=== PATIENT | female | born 1980 | race Two or more races ===

== ENCOUNTER 2016-11-21 10:15 | Inpatient (IN) | payer MEDICAID, OTHER ==
[2016-11-21 11:15] LABS: Hematocrit 43 % (35-47); Hemoglobin 13.7 g/dl (12.0-16.0); Mean Corpuscular HGB Conc 32 g/dl (31-36); Mean Corpuscular Hemoglobin 26 pg (27-31); Mean Corpuscular Volume 80 fL (80-97); Mean Platelet Volume 9 um3 (7.4-10.4); Red Blood Count 5.35 10^6/ul (4.0-5.4); Red Cell Distribution Width 14 % (10.5-15); White Blood Count 11.2 10^3/ul (3.5-10.8)
[2016-11-21 11:31] LABS: ALT 21 U/L (7-52); AST 14 U/L (13-39); Albumin 4.2 g/dL (3.2-5.2); Alkaline Phosphatase 61 U/L (34-104); Anion Gap 11 mmol/L (2-11); BUN/Creatinine Ratio 14.3 (8-20); Blood Urea Nitrogen 9 mg/dL (6-24); CO2 Carbon Dioxide 19 mmol/L (22-32); Calcium 9.6 mg/dL (8.6-10.3); Chloride 106 mmol/L (101-111); EGFR African American 136.7 (>60); EGFR Non-African American 106.3 (>60); Globulin 3.3 g/dL (2-4); Glucose 114 mg/dL (70-100); Potassium 3.3 mmol/L (3.5-5.0); Sodium 136 mmol/L (133-145); Total Protein 7.5 g/dL (6.4-8.9)
[2016-11-21] MEDS ORDERED: Potassium Chlor TAB* 20 MEQ TAB.ER PO ONE (11:47)
[2016-11-21 11:48] LABS: Acetaminophen < 15 mcg/mL; Alcohol < 10 mg/dL (<10); Salicylate < 2.50 mg/dL (<30)
[2016-11-21 11:52] LABS: Benzodiazepine Urine Screen None Detected (None Detect)
[2016-11-21 11:53] LABS: Urine Bacteria Absent (Absent); Urine Bilirubin Negative (Negative); Urine Glucose Negative (Negative); Urine Nitrite Negative (Negative)
[2016-11-21 12:01] LABS: TSH (Thyroid Stimulating Horm) 1.26 mcIU/mL (0.34-5.60)
[2016-11-21] MEDS ORDERED: Haloperidol INJ IV/IM* 5 MG/ML AMP IM ONE (13:17)
[2016-11-21] MEDS ORDERED: diPHENhydraMINE IV* 50 MG/ML 1 ml VIAL (BENADRYL) IM ONE ×2 (13:17→13:27)
[2016-11-21] MEDS ORDERED: LORazepam INJ* 2 MG/ML 1 ML VIAL IM ONE (13:17)
[2016-11-21] MEDS ORDERED: Nicotine Inhaler* 10 MG AMP INH ONE (13:37)
[2016-11-21] MEDS ORDERED: Al Hydrox/Mg Hydrox/Simet LIQ* 30 ML UDC PO PRN (15:38)
[2016-11-21] MEDS ORDERED: Acetaminophen TAB* 325 MG PO PRN (15:38)
[2016-11-21] MEDS ORDERED: LORazepam TAB(*) 1 MG PO PRN (15:39)
--- NOTE | 2016-11-21 15:49 | ED ---
Feng Cabrera Benjamin, scribed for Phoenix Rios MD on 11/21/16 at 1135 . Psychiatric Complaint - HPI Summary HPI Summary: 36yo female states that her bipolar is acting up for 3 days. Pt reports having manic syndrome, where pt cannot calm down or stay quiet. Pt says she has been talking herself. Pt is not hearing voices, and denies SI or HI. Pt has been having trouble sleeping lately. Pt takes haldol for her symptoms. Hx of insomnia and bipolar dz. Smoker, but denies street drug use. - History Of Current Complaint Chief Complaint: [facility]entalHealth Time Seen by Provider: 11/21/16 10:25 Hx Obtained From: Patient Hx Last Menstrual Period: last month Onset/Duration: Sudden Onset, Lasting Days - 3 days, Still Present Timing: Constant Severity Initially: Moderate Severity Currently: Moderate Character: Manic Aggravating Factor(s): Nothing Alleviating Factor(s): Nothing Associated Signs And Symptoms: Positive: Sleep Disturbance - insomnia - Allergies/Home Medications Allergies/Adverse Reactions: Allergies Allergy/AdvReac Type Severity Reaction Status Date / Time No Known Drug Allergy Allergy Unknown Verified 11/21/16 10:18 Reaction Details Home Medications: Home Medications Benztropine TAB* [Cogentin TAB*] 1 mg PO DAILY 11/21/16 [History Confirmed 11/21] Haloperidol TAB* [Haldol TAB*] 2 mg PO BID 11/21/16 [History Confirmed 11/21/16] Sertraline* [Zoloft*] 50 mg PO DAILY 11/21/16 [History Confirmed 11/21/16] PMH/Surg Hx/FS Hx/Imm Hx Endocrine/Hematology History: Denies: Hx Diabetes, Hx Thyroid Disease Cardiovascular History: Denies: Hx Hypertension Respiratory History: Denies: Hx Asthma, Hx Chronic Obstructive Pulmonary Disease (COPD) GI History: Denies: Hx Ulcer Psychiatric History: Reports: Hx Anxiety, Hx Inpatient Treatment - Prior to delivery pt was on BSU @ [facility] [place], Hx Bipolar Disorder, Other Psychiatric Issues/ Disorders - psychosis Denies: Hx Eating Disorder, Hx of Violent Episodes Against Others Infectious Disease History: No Infectious Disease History: Denies: Hx Hepatitis, Hx Human Immunodeficiency Virus (HIV), History Other Infectious Disease, Traveled Outside the [place] in Last 30 Days - Family History Known Family History: Negative: Cardiac Disease, Hypertension - Social History Occupation: Unemployed Lives: With Family Alcohol Use: None Substance Use Type: Reports: None Smoking Status (MU): Never Smoked Tobacco Type: Cigarettes Amount Used/How Often: 1/2 ppd Length of Time of Smoking/Using Tobacco: 20 years Have You Smoked in the Last Year: Yes Review of Systems Constitutional: Negative Eyes: Negative ENT: Negative Cardiovascular: Negative Respiratory: Negative Gastrointestinal: Negative Genitourinary: Negative Musculoskeletal: Negative Skin: Negative Neurological: Negative Positive: Other - manic, insomnia. All Other Systems Reviewed And Are Negative: Yes Physical Exam Triage Information Reviewed: Yes Vital Signs On Initial Exam: Initial Vitals Temp Pulse Resp BP Pulse Ox 98.4 F 99 16 144/89 98 11/21/16 10:18 11/21/16 10:18 11/21/16 10:18 11/21/16 10:18 11/21/16 10:18 Appearance: Positive: Well-Appearing - she seems a little anxious and manic in disposition Skin: Positive: Warm, Skin Color Reflects Adequate Perfusion Head/Face: Positive: Normal Head/Face Inspection Eyes: Positive: Normal, EOMI ENT: Positive: Pharynx normal, TMs normal Neck: Positive: Supple, Nontender Respiratory/Lung Sounds: Positive: Clear to Auscultation, Breath Sounds Present Cardiovascular: Positive: Normal, RRR. Negative: Murmur Abdomen Description: Positive: Nontender Musculoskeletal: Positive: Strength/ROM Intact Neurological: Positive: Normal, Sensory/Motor Intact, Alert, Oriented to Person Place, Time, CN Intact II-III, Normal Gait, Speech Normal - but pressured Psychiatric: Positive: Anxious, Other - she paces in the room, and speach is a little pressured, answers question quickly like she can't wait to respond fast enough. AVPU Assessment: Alert - [place] Coma Scale Coma Scale Total: 13 Diagnostics - Vital Signs Vital Signs Temp Pulse Resp BP Pulse Ox 11/21/16 11:06 98.4 F 99 16 144/89 98 11/21/16 10:18 98.4 F 99 16 144/89 98 - Laboratory Lab Results: Lab Results 11/21/16 11/21/16 Range/Units 11:06 11:06 WBC 11.2 H (3.5-10.8) 10^3/ul RBC 5.35 (4.0-5.4) 10^6/ul Hgb 13.7 (12.0-16.0) g/dl Hct 43 (35-47) % MCV 80 (80-97) fL MCH 26 L (27-31) pg MCHC 32 (31-36) g/dl RDW 14 (10.5-15) % Plt Count 224 (150-450) 10^3/ul MPV 9 (7.4-10.4) um3 Neut % (Auto) 79.8 (38-83) % Lymph % (Auto) 15.3 L (25-47) % [place] % (Auto) 3.5 (1-9) % Eos % (Auto) 0.4 (0-6) % Baso % (Auto) 1.0 (0-2) % Absolute Neuts (auto) 8.9 H (1.5-7.7) 10^3/ul Absolute Lymphs (auto) 1.7 (1.0-4.8) 10^3/ul Absolute Monos (auto) 0.4 (0-0.8) 10^3/ul Absolute Eos (auto) 0 (0-0.6) 10^3/ul Absolute Basos (auto) 0.1 (0-0.2) 10^3/ul Absolute Nucleated RBC 0 10^3/ul Nucleated RBC % 0 Sodium 136 (133-145) mmol/L Potassium 3.3 L (3.5-5.0) mmol/L Chloride 106 (101-111) mmol/L Carbon Dioxide 19 L (22-32) mmol/L Anion Gap 11 (2-11) mmol/L BUN 9 (6-24) mg/dL Creatinine 0.63 (0.51-0.95) mg/dL Est GFR ( Amer) 136.7 (>60) Est GFR (Non-Af Amer) 106.3 (>60) BUN/Creatinine Ratio 14.3 (8-20) Glucose 114 H (70-100) mg/dL Calcium 9.6 (8.6-10.3) mg/dL Total Bilirubin 0.30 (0.2-1.0) mg/dL AST 14 (13-39) U/L ALT 21 (7-52) U/L Alkaline Phosphatase 61 (34-104) U/L Total Protein 7.5 (6.4-8.9) g/dL Albumin 4.2 (3.2-5.2) g/dL Globulin 3.3 (2-4) g/dL Albumin/Globulin Ratio 1.3 (1-3) TSH Pending Salicylates Pending Acetaminophen Pending Serum Alcohol Pending Result Diagrams: 11/21/16 11:06 11/21/16 11:06 Lab Statement: Any lab studies that have been ordered have been reviewed, and results considered in the medical decision making process. Course/Dx - Course Course Of Treatment: 36 yr old with pressured speach and anxious, and asking for admission to mental health. Awaiting mental health eval. Pt is medically cleared for mental health eval. at 12:50. - Differential Dx/Clinical Impression Provider Diagnosis: Manic behavior Discharge - Discharge Plan Condition: Good Disposition: PSYCHIATRIC FACILITY-[facility] [place] The documentation as recorded by the Feng schreiber Benjamin accurately reflects the service I personally performed and the decisions made by , Phoenix Rios MD.
[2016-11-21] MEDS: Haloperidol TAB* 2 MG PO SCH (22:18)
[2016-11-22] MEDS: Haloperidol TAB* 2 MG PO SCH (07:41)
[2016-11-22] MEDS: Benztropine TAB* 1 MG PO SCH (07:41)
[2016-11-22] MEDS: Mouth Piece, Nicotine* 1 EACH CARTRIDGE INH PRN ×2 (07:42→15:39)
[2016-11-22] MEDS ORDERED: Sertraline* 50 MG TAB PO SCH (09:00)
--- NOTE | 2016-11-22 12:38 | HP ---
H&P (Free Text) History and Physical: HPI: ---- Patient is a 36yo female with PPHx significant for Bipolar 1 d/o who self presents [place] [facility] reporting worsening insomnia, agitation, and "lymphocyting" over the last 3 days. Patient reports she made that word up, but to her lymphocyting is an episodic inability to sit still, she has to walk around, she has to hold her legs to keep them from bouncing. Patient gives this provider verbal permission to call parents. Collateral information gained from mother#[phone]. Mom reports patient has been more irritable and angry. Patient has been demanding toward family and is verbally aggressive when someone upsets her. Mom reports patient has not slept well for a week. She also reports patient's "nerves" have been bad and she cant stop pacing. On interview, patient is activated in manner, rapid in speech but incorruptible , reports increased anxiety and insomnia. Patient displays moderate psychomotor activation. Patient is linear in TP and appropriate in TC. She reports no use of alchol or illicit substances since being with her 3yo son. She reports being a [facility] patient. She also is an [facility] patient and a patient of [facility]. Patient reports she is compliant with current psychotropic med regimen. Patient denies hx of physical, emotional, or sexual abuse in her life. Patient denies hx of suicide attempt and denies hx of SIB. Patient denies symptoms of psychosis nor were any elicited on interview. Patient denies SI/HI and AH/VH. Past Psych Hx: Inpt - Patient reports >6 inpatient psychiatric hospitalizations Outpt - [facility], Dr. Yang, last seen 2 weeks ago Dx - Bipolar d/o Psychotropic med hx - Haldol, Cogentin, Zoloft Suicide attempt Hx / SIB Hx: Patient denies hx of suicide attempt and denies hx of SIB. Trauma Hx: Patient denies hx of physical, emotional, or sexual abuse in her life. Substance Hx: Patient denies hx of abuse of alcohol. Patient reports no use of cannabis in 3 years, since being with her son. Patient denies hx of use of any other illicit substances. Medical Hx: None Allergies: --------- NKDA Family Hx: -Patient denies suicide hx on mom or dad's side of her family. -Patient denies RAN issues on mom or dad's side of her family. -Patient denies MH issues on mom or dad's side of her family. Social Hx: --------- -Born in [facility] [place], moved to [place], [place] at 2yo -Raised by mom and dad, close -1 of 2 remaining siblings, brother, close -HLOE: some college -Single, never -1 child, 3yo son -Lives with parents -Patient denies guns in the home -Patient denies stockpiles of old pills in the home Home Meds: Home Medications Medication Instructions Recorded Confirmed Type Benztropine TAB* [Cogentin TAB*] 1 mg PO DAILY 11/21/16 11/21/16 History Haloperidol TAB* [Haldol TAB*] 2 mg PO BID 11/21/16 11/21/16 History Sertraline* [Zoloft*] 50 mg PO DAILY 11/21/16 11/21/16 History VITALS: Vital Signs (72 hours) 11/21/16 11/21/16 11/21/16 10:18 11:06 13:29 Temperature 98.4 F 98.4 F Pulse Rate 99 99 Respiratory 16 16 16 Rate Blood Pressure 144/89 144/89 (mmHg) O2 Sat by Pulse 98 98 Oximetry 11/21/16 11/21/16 11/22/16 17:12 19:48 07:41 Temperature 97.7 F Pulse Rate 96 Respiratory 15 15 18 Rate Blood Pressure 111/73 (mmHg) O2 Sat by Pulse 100 Oximetry 11/22/16 11/22/16 11/22/16 07:43 09:41 11:49 Temperature 99.6 F Pulse Rate 88 Respiratory 16 20 16 Rate Blood Pressure 119/77 (mmHg) O2 Sat by Pulse 100 Oximetry LABS: ------- Laboratory Tests 0811/21/16 11/21/16 11:06 11:06 11:25 WBC 11.2 H RBC 5.35 Hgb 13.7 Hct 43 MCV 80 MCH 26 L MCHC 32 RDW 14 Plt Count 224 MPV 9 Neut % (Auto) 79.8 Lymph % (Auto) 15.3 L [place] % (Auto) 3.5 Eos % (Auto) 0.4 Baso % (Auto) 1.0 Absolute Neuts (auto) 8.9 H Absolute Lymphs (auto) 1.7 Absolute Monos (auto) 0.4 Absolute Eos (auto) 0 Absolute Basos (auto) 0.1 Absolute Nucleated RBC 0 Nucleated RBC % 0 Sodium 136 Potassium 3.3 L Chloride 106 Carbon Dioxide 19 L Anion Gap 11 BUN 9 Creatinine 0.63 Est GFR ( Amer) 136.7 Est GFR (Non-Af Amer) 106.3 BUN/Creatinine Ratio 14.3 Glucose 114 H Calcium 9.6 Total Bilirubin 0.30 AST 14 ALT 21 Alkaline Phosphatase 61 Total Protein 7.5 Albumin 4.2 Globulin 3.3 Albumin/Globulin Ratio 1.3 TSH 1.26 Urine Color Yellow Urine Appearance Clear Urine pH 5.0 Ur Specific [place] 1.020 Urine Protein Negative Urine Ketones 1+ H Urine Blood Negative Urine Nitrate Negative Urine Bilirubin Negative Urine Urobilinogen Negative Ur Leukocyte Esterase Trace H Urine WBC (Auto) 1+(6-10/hpf) H Urine RBC (Auto) Absent Ur Squamous Epith Cells Present H Urine Bacteria Absent Urine Glucose Negative Urine Ascorbic Acid * H Salicylates < 2.50 Urine Opiates Screen Acetaminophen < 15 Ur Barbiturates Screen Ur Phencyclidine Scrn Ur Amphetamines Screen U Benzodiazepines Scrn Urine Cocaine Screen U Cannabinoids Screen Serum Alcohol < 10 11/21/16 11:25 WBC RBC Hgb Hct MCV MCH MCHC RDW Plt Count MPV Neut % (Auto) Lymph % (Auto) [place] % (Auto) Eos % (Auto) Baso % (Auto) Absolute Neuts (auto) Absolute Lymphs (auto) Absolute Monos (auto) Absolute Eos (auto) Absolute Basos (auto) Absolute Nucleated RBC Nucleated RBC % Sodium Potassium Chloride Carbon Dioxide Anion Gap BUN Creatinine Est GFR ( Amer) Est GFR (Non-Af Amer) BUN/Creatinine Ratio Glucose Calcium Total Bilirubin AST ALT Alkaline Phosphatase Total Protein Albumin Globulin Albumin/Globulin Ratio TSH Urine Color Urine Appearance Urine pH Ur Specific [place] Urine Protein Urine Ketones Urine Blood Urine Nitrate Urine Bilirubin Urine Urobilinogen Ur Leukocyte Esterase Urine WBC (Auto) Urine RBC (Auto) Ur Squamous Epith Cells Urine Bacteria Urine Glucose Urine Ascorbic Acid Salicylates Urine Opiates Screen None detected Acetaminophen Ur Barbiturates Screen None detected Ur Phencyclidine Scrn None detected Ur Amphetamines Screen None detected U Benzodiazepines Scrn None detected Urine Cocaine Screen None detected U Cannabinoids Screen None detected Serum Alcohol PHYSICAL EXAM: Patient declines PE. Please see H&P documented in the [facility]: Psychiatric Complaint note dated 11/21/16. MSE: ----- Appearance - moderate build female, fair hygeine, in NAD Behavior - moderate PMA(+), cooperative Speech - RRR, prosody wnl Eye Contact - fair Mood - "anxious" Affect - anxious TP - linear TC - med modification to treat "lymphocyting"/"my nerves" Perception - no signs of psychosis noted or reported Orientation - A&Ox3 Cognition - intact Insight - fair Judgement - fair SI / HI - denies both since admission ASSESSMENT: 1. Bipolar 1 d/o, MRE manic w/o PFs 2. Akathisia aka "lymphocyting" PLAN: ------ 1. Continue admission to [facility] for safety and symptom mx. 2. Continue Cogentin 1mg po daily for EPS. 3. Patient gives informed consent to start Mirtazepine 15mg po qhs for Akathesia and Insomnia. 4. Will D/C Haldol as is likely cause of Akathesia 5. Patient gives informed consent to start [place] for mood stabilization. 6. Patient gives this provider verbal permission to call parents. Collateral information gained from mother#[phone]. 7. Continue compiling collateral information from [facility] providers. 8. Patient to participate in milieu activities and groups.
[2016-11-22 13:19] LABS: Cholesterol 171 mg/dL; HDL Cholesterol 43.4 mg/dL; LDL Cholesterol 104 mg/dL; Triglycerides 116 mg/dL
[2016-11-22] MEDS: Nicotine Inhaler* 10 MG AMP INH PRN (16:03)
[2016-11-22] MEDS: Mirtazapine TAB* 15 MG PO SCH (20:49)
[2016-11-22] MEDS: Lithium Carbonate TAB* 300 MG PO SCH (21:56)
[2016-11-23] MEDS: Lithium Carbonate TAB* 300 MG PO SCH ×2 (09:31→21:18)
[2016-11-23] MEDS: Benztropine TAB* 1 MG PO SCH (09:31)
[2016-11-23] MEDS: Mirtazapine TAB* 15 MG PO SCH (21:18)
[2016-11-24] MEDS: Benztropine TAB* 1 MG PO SCH (09:52)
[2016-11-24] MEDS: Lithium Carbonate TAB* 300 MG PO SCH ×2 (09:52→21:29)
--- NOTE | 2016-11-24 15:46 | PN ---
Subjective - Subjective Service Type: 11180 Hosp care 15 min low complexity Subjective: Says she is tired of "LYMPHOSTING". But thinks she has been doing better with less anxiety, less intrussive thoughts etc. Wants to go out for a walk. Objective - Appearance Appearance: Healthy Appearing Dysmorphic Features: No Hygiene: Normal Grooming: Well Kept - Behavior Psychomotor Activities: Normal Exhibits Abnormal Movement: No - Attitude and Relatedness Attitude and Relatedness: Guarded Eye Contact: Good - Speech Quality: Pressured Latencies: Short Quantity: Copious - Mood Patient's Decription of Mood: "Fine" - Affect Observed Affect: Expansive Affect Consistent with: Dysphoria - Thought Process Patient's Thought Process: Coherent, Circumstantial, Over Inclusive Thought Content: No Passive Wish, No Suicidal Planning, No Homicidal Ideation, No Paranoid Ideation - Sensorium Experiencing Hallucinations: No, Sensorium is Clear Type of Hallucinations: Visual: No, Auditory: No, Command: No - Level of Consciousness Level of Consciousness: Alert Orientation: Yes Intact, Yes Orientated to Time, Yes Orientated to Place, Yes Orientated to Person - Impulse Control Impulse Control: Tenuous - Insight and Judgement Insight and Judgement: Poor - Group Participation Particating in Group Activities: Yes - Medication Management Medication Management Adherence: Yes Assessment - Assessment Merits Inpatient Hospitalization: For Stabilization, For Discharge Planning Plan - Plan Treatment Plan: Name: BYRON CALVERT Birthdate: 1980 [id number] Continued Medication Management: Continue Outpt Medication Medications: Current Medications Acetaminophen (Tylenol Tab*) 650 mg PO Q4H PRN PRN Reason: for pain; or Temp >101 F Al Hydrox/Mg Hydrox/Simethicone (Maalox Plus*) 30 ml PO Q4H PRN PRN Reason: INDIGESTION Benztropine Mesylate (Cogentin Tab*) 1 mg PO DAILY [facility] Last Admin: 11/24/16 09:52 Dose: 1 mg Device (Nicotine Mouth Piece*) 1 each INH .USE WITH NICOTROL PRN PRN Reason: CRAVING Last Admin: 11/22/16 15:39 Dose: 1 each [place] Carbonate ([place] Carbonate Tab*) 300 mg PO BID [facility] Last Admin: 11/24/16 09:52 Dose: 300 mg Lorazepam (Ativan Tab(*)) 1 mg PO Q6H PRN PRN Reason: ANXIETY Mirtazapine (Remeron Tab*) 15 mg PO BEDTIME [facility] Last Admin: 11/23/16 21:18 Dose: 15 mg Nicotine (Nicotine Inhaler*) 10 mg INH Q2H PRN PRN Reason: CRAVING Last Admin: 11/22/16 16:03 Dose: 10 mg - Discharge Plan Discharge Plan: Outpatient Follow Up Outpatient Program: [facility]
[2016-11-24] MEDS: Mirtazapine TAB* 15 MG PO SCH (21:29)
[2016-11-25] MEDS: Lithium Carbonate TAB* 300 MG PO SCH ×2 (09:44→20:43)
[2016-11-25] MEDS: Benztropine TAB* 1 MG PO SCH (09:45)
--- NOTE | 2016-11-25 13:25 | PN ---
MHU: Group Therapy Note - Service Type Service Type: 08438 Group Psychotherapy - Cognitive Behavioral Group Therapy ( CBT):Patient presented in CBT programming as disorganized and disruptive in discussion and needed repeated redirection to attend to presented materials.
--- NOTE | 2016-11-25 15:15 | PN ---
Subjective - Subjective Service Type: 58472 Hosp care 15 min low complexity Subjective: Patient lying in her bed on my approach. She is calm and cooperative with interview. Patient displays no PMA with exception of some foot taping. Patient reports she has not experienced "lymphocyting" since admission. Patient reports sleep has improved and appetite is fair. Patient denies SI/HI and AH/VH. She reports she does talk to herself, but reports doing so as it "helps me organize my thoughts". Patient reports her thoughts had been racing and she'd been very anxious, primarily due to financial worries regarding raising her son. Patient reports her mind has calmed and her anxiety is improved. Patient is med compliant and denies med s/e's. Objective - Appearance Appearance: Well Developed/Nourished Dysmorphic Features: No Hygiene: Normal Grooming: Fairly Well Kept - Behavior Psychomotor Activities: Normal Exhibits Abnormal Movement: No - Attitude and Relatedness Attitude and Relatedness: Cooperative Eye Contact: Fair - Speech Quality: Unpressured Latencies: Normal Quantity: Appropriate - Mood Patient's Decription of Mood: "Anxious" - Affect Observed Affect: Fair Affect Consistent with: Euthymia - Thought Process Patient's Thought Process: Coherent Thought Content: No Passive Wish, No Suicidal Planning, No Homicidal Ideation, No Paranoid Ideation - Sensorium Experiencing Hallucinations: No, Sensorium is Clear Type of Hallucinations: Visual: No, Auditory: No, Command: No - Level of Consciousness Level of Consciousness: Alert Orientation: Yes Intact, Yes Orientated to Time, Yes Orientated to Place, Yes Orientated to Person - Impulse Control Impulse Control: Intact - Insight and Judgement Insight and Judgement: Fair - Group Participation Particating in Group Activities: Yes - Medication Management Medication Management Adherence: Yes Assessment - Assessment Merits Inpatient Hospitalization: For Immediate Safety, For Stabilization Inpatient DSM-IV Dx: 1. Bipolar 1 d/o, MRE manic w/o PFs. 2. Akathisia Plan - Plan Treatment Plan: Name: BYRON CALVERT Birthdate: 1980 [id number] PLAN: ------ 1. Continue admission to [facility] for safety and symptom mx. 2. Continue Cogentin 1mg po daily for now with plan to d/c tomorrow. 3. Continue Mirtazepine 15mg po qhs for Akathisia and Insomnia. 4. Will D/C Haldol as is likely cause of Akathisia 5. Continue [place] 300mg po BID for mood stabilization. 6. Patient gives this provider verbal permission to call parents. Collateral information gained from mother#[phone]. 7. Continue compiling collateral information from [facility] providers. 8. Patient to participate in milieu activities and groups. Medications: Current Medications Acetaminophen (Tylenol Tab*) 650 mg PO Q4H PRN PRN Reason: for pain; or Temp >101 F Al Hydrox/Mg Hydrox/Simethicone (Maalox Plus*) 30 ml PO Q4H PRN PRN Reason: INDIGESTION Benztropine Mesylate (Cogentin Tab*) 1 mg PO DAILY [facility] Last Admin: 11/25/16 09:45 Dose: 1 mg Device (Nicotine Mouth Piece*) 1 each INH .USE WITH NICOTROL PRN PRN Reason: CRAVING Last Admin: 11/22/16 15:39 Dose: 1 each [place] Carbonate ([place] Carbonate Tab*) 300 mg PO BID [facility] Last Admin: 11/25/16 09:44 Dose: 300 mg Lorazepam (Ativan Tab(*)) 1 mg PO Q6H PRN PRN Reason: ANXIETY Mirtazapine (Remeron Tab*) 15 mg PO BEDTIME [facility] Last Admin: 11/24/16 21:29 Dose: 15 mg Nicotine (Nicotine Inhaler*) 10 mg INH Q2H PRN PRN Reason: CRAVING Last Admin: 11/22/16 16:03 Dose: 10 mg - Discharge Plan Discharge Plan: Outpatient Follow Up
[2016-11-25] MEDS: Mirtazapine TAB* 15 MG PO SCH (20:43)
[2016-11-26] MEDS: Benztropine TAB* 1 MG PO SCH ×2 (09:44→21:27)
[2016-11-26] MEDS: Lithium Carbonate TAB* 300 MG PO SCH ×2 (09:44→21:27)
--- NOTE | 2016-11-26 11:27 | PN ---
MHU: Group Therapy Note - Service Type Service Type: 21415 Group Psychotherapy - Cognitive Behavioral Group Therapy ( CBT):Patient was attentive and participatory in CBT programming this morning, and remained in good behavioral control. Patient expressed positive insights regarding relevant treatment interventions and goals.
--- NOTE | 2016-11-26 18:38 | PN ---
Subjective - Subjective Service Type: [id number] Hosp care 15 min low complexity Subjective: Patient mostly spends her day in her room, but does participate in groups. She is full on affect and calm, cooperative with interview. Patient is nml in RVR of speech. She reports sleep continues to improve. She reports 8 hrs last night. Patient reports appetite also is wnl. Patient denies SI/HI and AH/VH. Patient displays no manic or bizarre behaviors. Patient seen by ACT and SW today. Patient was discharged from [facility] last week, but they had a recommendation to start a JONES antipsychotic as patient noted to become periodically bizarre in thought and behavior during their time with patient. Patient reports today no current symptoms of psychosis, but reports hx of AH/VH and significant paranoia. Patient amenable to initiation of Risperdal for her episodic psychosis. Patient currently denies SI/HI and AH/VH. Objective - Appearance Appearance: Well Developed/Nourished Dysmorphic Features: No Hygiene: Normal Grooming: Fairly Well Kept - Behavior Psychomotor Activities: Normal Exhibits Abnormal Movement: No - Attitude and Relatedness Attitude and Relatedness: Cooperative Eye Contact: Fair - Speech Quality: Unpressured Latencies: Normal Quantity: Appropriate - Mood Patient's Decription of Mood: "Okay" - Affect Observed Affect: Fair Affect Consistent with: Euthymia - Thought Process Patient's Thought Process: Coherent Thought Content: No Passive Wish, No Suicidal Planning, No Homicidal Ideation, No Paranoid Ideation - Sensorium Experiencing Hallucinations: No, Sensorium is Clear Type of Hallucinations: Visual: No, Auditory: No, Command: No - Level of Consciousness Level of Consciousness: Alert Orientation: Yes Intact, Yes Orientated to Time, Yes Orientated to Place, Yes Orientated to Person - Impulse Control Impulse Control: Intact - Insight and Judgement Insight and Judgement: Fair - Group Participation Particating in Group Activities: Yes - Medication Management Medication Management Adherence: Yes Assessment - Assessment Merits Inpatient Hospitalization: For Immediate Safety, For Stabilization Inpatient DSM-IV Dx: 1. Bipolar 1 d/o, MRE manic w/o PFs. 2. Akathisia Plan - Plan Treatment Plan: Name: BYRON CALVERT Birthdate: 1980 [id number] PLAN: ------ 1. Continue admission to [facility] for safety and symptom mx. 2. Continue Cogentin 1mg po daily for now with plan to d/c tomorrow. 3. Continue Mirtazepine 15mg po qhs for Akathisia and Insomnia. 4. Will D/C Haldol as is likely cause of Akathisia 5. Patient gives informed consent to start Risperdal 2mg po qhs for hx of intermittent psychosis. Plan to recommend and initiate Loading doses of Invega Sustenna prior to discharge. 6. Continue [place] 300mg po BID for mood stabilization. [place] level ordered for am prior to am dose. 7. Patient gives this provider verbal permission to call parents. Collateral information gained from mother#[phone]. 8. Continue compiling collateral information from [facility] providers. 9. Patient to participate in milieu activities and groups. Medications: Current Medications Acetaminophen (Tylenol Tab*) 650 mg PO Q4H PRN PRN Reason: for pain; or Temp >101 F Al Hydrox/Mg Hydrox/Simethicone (Maalox Plus*) 30 ml PO Q4H PRN PRN Reason: INDIGESTION Benztropine Mesylate (Cogentin Tab*) 1 mg PO BEDTIME LIBBY Device (Nicotine Mouth Piece*) 1 each INH .USE WITH NICOTROL PRN PRN Reason: CRAVING Last Admin: 11/22/16 15:39 Dose: 1 each [place] Carbonate ([place] Carbonate Tab*) 300 mg PO BID LIBBY Last Admin: 11/26/16 09:44 Dose: 300 mg Lorazepam (Ativan Tab(*)) 1 mg PO Q6H PRN PRN Reason: ANXIETY Mirtazapine (Remeron Tab*) 15 mg PO BEDTIME LIBBY Last Admin: 11/25/16 20:43 Dose: 15 mg Nicotine (Nicotine Inhaler*) 10 mg INH Q2H PRN PRN Reason: CRAVING Last Admin: 11/22/16 16:03 Dose: 10 mg Risperidone (Risperdal) 2 mg PO BEDTIME LIBBY - Discharge Plan Discharge Plan: Outpatient Follow Up
[2016-11-26] MEDS: risperiDONE TAB* 2 MG PO SCH (21:27)
[2016-11-26] MEDS: Mirtazapine TAB* 15 MG PO SCH (21:27)
[2016-11-27 09:12] LABS: Albumin 4.1 g/dL (3.2-5.2); BUN/Creatinine Ratio 21.9 (8-20); Calcium 9.2 mg/dL (8.6-10.3); EGFR African American 134.3 (>60); EGFR Non-African American 104.4 (>60); Globulin 2.9 g/dL (2-4); Potassium 4.1 mmol/L (3.5-5.0); Total Bilirubin 0.2 mg/dL (0.2-1.0)
[2016-11-27 09:15] LABS: Lithium 0.22 mmol/L (0.6-1.2)
[2016-11-27] MEDS: Lithium Carbonate TAB* 300 MG PO SCH ×2 (09:17→20:50)
[2016-11-27] MEDS: Nicotine Inhaler* 10 MG AMP INH PRN (09:18)
[2016-11-27] MEDS: Mouth Piece, Nicotine* 1 EACH CARTRIDGE INH PRN (09:19)
--- NOTE | 2016-11-27 11:35 | PN ---
MHU: Group Therapy Note - Service Type Service Type: [id number] Group Psychotherapy - Cognitive Behavioral Group Therapy ( CBT):Patient was attentive and participatory in CBT programming this morning, and remained in good behavioral control. Patient expressed positive insights regarding relevant treatment interventions and goals.
--- NOTE | 2016-11-27 12:07 | PN ---
Subjective - Subjective Service Type: [id number] Hosp care 15 min low complexity Subjective: Patient sitting near milieu window reciting poetry to herself on my approach. She is calm, cooperative, and engages the interview. Patient is linear in TP and appropriate in TC. Patient reports med compliance and denies med s/e with addition of Risperdal to her regimen. Patient reports her thinking is more clear and organized. She reports a reduction in anxiety and another night of good sleep. Patient denies SI/HI and AH/VH. She was offered JONES Invega Sustenna, but declined it reporting she would rather take pills. Patient reports no inner need to keep moving or other symptoms of Akathisia. Objective - Appearance Appearance: Well Developed/Nourished Dysmorphic Features: No Hygiene: Normal Grooming: Fairly Well Kept - Behavior Psychomotor Activities: Normal Exhibits Abnormal Movement: No - Attitude and Relatedness Attitude and Relatedness: Cooperative Eye Contact: Fair - Speech Quality: Unpressured Latencies: Normal Quantity: Appropriate - Mood Patient's Decription of Mood: "Fine" - Affect Observed Affect: Fair Affect Consistent with: Euthymia - Thought Process Patient's Thought Process: Coherent Thought Content: No Passive Wish, No Suicidal Planning, No Homicidal Ideation, No Paranoid Ideation - Sensorium Experiencing Hallucinations: No, Sensorium is Clear Type of Hallucinations: Visual: No, Auditory: No, Command: No - Level of Consciousness Level of Consciousness: Alert Orientation: Yes Intact, Yes Orientated to Time, Yes Orientated to Place, Yes Orientated to Person - Impulse Control Impulse Control: Intact - Insight and Judgement Insight and Judgement: Fair - Group Participation Particating in Group Activities: Yes - Medication Management Medication Management Adherence: Yes Assessment - Assessment Merits Inpatient Hospitalization: For Immediate Safety, For Stabilization Inpatient DSM-IV Dx: 1. Bipolar 1 d/o, MRE manic w/o PFs. 2. Akathisia, resolved Plan - Plan Treatment Plan: Name: BYRON CALVERT Birthdate: 1980 [id number] PLAN: ------ 1. Continue admission to [facility] for safety and symptom mx. 2. Continue Cogentin 1mg po daily for now with plan to d/c tomorrow. 3. Continue Mirtazepine 15mg po qhs for Akathisia and Insomnia. 4. Will D/C Haldol as is likely cause of Akathisia 5. Continue Risperdal 2mg po qhs for recurrent episodes of psychosis. Patient declined recommendation to start JONES Invega Sustenna. 6. Continue [place] 300mg po BID for mood stabilization. [place] level ordered for am prior to am dose. 7. Patient informed this provider would like to speak with her father, who patient lives with and has historically monitored and reminded patient to take her MH meds. 8. Discharge planning tomorrow. 9. Patient gives this provider verbal permission to call parents. Collateral information gained from mother#[phone]. 10. Continue compiling collateral information from [facility] providers. 11. Patient to participate in milieu activities and groups. Medications: Current Medications Acetaminophen (Tylenol Tab*) 650 mg PO Q4H PRN PRN Reason: for pain; or Temp >101 F Al Hydrox/Mg Hydrox/Simethicone (Maalox Plus*) 30 ml PO Q4H PRN PRN Reason: INDIGESTION Benztropine Mesylate (Cogentin Tab*) 1 mg PO BEDTIME [facility] Last Admin: 11/26/16 21:27 Dose: 1 mg Device (Nicotine Mouth Piece*) 1 each INH .USE WITH NICOTROL PRN PRN Reason: CRAVING Last Admin: 11/27/16 09:19 Dose: 1 each [place] Carbonate ([place] Carbonate Tab*) 300 mg PO BID [facility] Last Admin: 11/27/16 09:17 Dose: 300 mg Lorazepam (Ativan Tab(*)) 1 mg PO Q6H PRN PRN Reason: ANXIETY Mirtazapine (Remeron Tab*) 15 mg PO BEDTIME [facility] Last Admin: 11/26/16 21:27 Dose: 15 mg Nicotine (Nicotine Inhaler*) 10 mg INH Q2H PRN PRN Reason: CRAVING Last Admin: 11/27/16 09:18 Dose: 10 mg Risperidone (Risperdal*) 2 mg PO BEDTIME LIBBY Last Admin: 11/26/16 21:27 Dose: 2 mg - Discharge Plan Discharge Plan: Outpatient Follow Up Outpatient Program: [facility]
[2016-11-27] MEDS: risperiDONE TAB* 2 MG PO SCH (20:50)
[2016-11-27] MEDS: Benztropine TAB* 1 MG PO SCH (20:51)
[2016-11-27] MEDS: Mirtazapine TAB* 15 MG PO SCH (20:51)
[2016-11-28] MEDS: Lithium Carbonate TAB* 300 MG PO SCH ×2 (09:47→22:08)
--- NOTE | 2016-11-28 11:42 | PN ---
MHU: Group Therapy Note - Service Type Service Type: [id number] Group Psychotherapy - Cognitive Behavioral Therapy (CBT): Patient presents with high volume of speech that impresses as being coherent within the context of self-report, but is tangential and off topic in group context. Concerns regarding disorganization of thought are apparent.
--- NOTE | 2016-11-28 12:20 | PN ---
Subjective - Subjective Service Type: [id number] Hosp care 15 min low complexity Subjective: Patient continues to isolate in her bedroom, but noted to attend some groups. Patient is again linear and GD in TP. She is full in affect. She displays no manic symptoms. Patient reports another night of 8hrs of sleep and reports no "lymphocytosis" since admission and no med s/e's on current med regimen. Patient reports again no issues on Risperdal. Patient declined recommendation to start JONES Invega Sustenna, reporting she is allergic to needles as she's noticed subsequent bruising after each time she has a blood draw. Patient denies SI/HI and AH/VH. Patient informed of tentative discharge date of tomorrow. Patient also informed this provider would like to speak with her father, who she lives with, prior to discharge. Patient reports her father will be here for planned family meeting tomorrow prior to her discharge. Objective - Appearance Appearance: Well Developed/Nourished Dysmorphic Features: No Hygiene: Normal Grooming: Well Kept - Behavior Psychomotor Activities: Normal Exhibits Abnormal Movement: No - Attitude and Relatedness Attitude and Relatedness: Cooperative Eye Contact: Fair - Speech Quality: Unpressured Latencies: Normal Quantity: Appropriate - Mood Patient's Decription of Mood: "Fine" - Affect Observed Affect: Fair Affect Consistent with: Euthymia - Thought Process Patient's Thought Process: Coherent Thought Content: No Passive Wish, No Suicidal Planning, No Homicidal Ideation, No Paranoid Ideation - Sensorium Experiencing Hallucinations: No, Sensorium is Clear Type of Hallucinations: Visual: No, Auditory: No, Command: No - Level of Consciousness Level of Consciousness: Alert Orientation: Yes Intact, Yes Orientated to Time, Yes Orientated to Place, Yes Orientated to Person - Impulse Control Impulse Control: Intact - Insight and Judgement Insight and Judgement: Fair - Group Participation Particating in Group Activities: Yes - Medication Management Medication Management Adherence: Yes Assessment - Assessment Merits Inpatient Hospitalization: For Immediate Safety, For Stabilization Inpatient DSM-IV Dx: 1. Bipolar 1 d/o, MRE manic with PFs. 2. Akathisia, resolved Plan - Plan Treatment Plan: Name: BYRON CALVERT Birthdate: 1980 [id number] PLAN: ------ 1. Continue admission to [facility] for safety and symptom mx. 2. Continue Cogentin 1mg po daily for now with plan to d/c tomorrow. 3. Continue Mirtazepine 15mg po qhs for Akathisia and Insomnia. 4. Will D/C Haldol as is likely cause of Akathisia 5. Continue Risperdal 2mg po qhs for recurrent episodes of psychosis. Patient declined recommendation to start JONES Invega Sustenna. 6. Increase [place] from 300mg to 450mg po BID for mood stabilization. [place] level today, 11/28/16 - 0.22 7. Patient informed this provider would like to speak with her father, who patient lives with and has historically monitored and reminded patient to take her MH meds. 8. Discharge tentative plan for tomorrow after family meeting with father, this provider, and patient. 9. Patient gives this provider verbal permission to call parents. Collateral information gained from mother#[phone]. 10. Continue compiling collateral information from [facility] providers. 11. Patient to participate in milieu activities and groups. Medications: Current Medications Acetaminophen (Tylenol Tab*) 650 mg PO Q4H PRN PRN Reason: for pain; or Temp >101 F Al Hydrox/Mg Hydrox/Simethicone (Maalox Plus*) 30 ml PO Q4H PRN PRN Reason: INDIGESTION Benztropine Mesylate (Cogentin Tab*) 1 mg PO BEDTIME [facility] Last Admin: 11/27/16 20:51 Dose: 1 mg Device (Nicotine Mouth Piece*) 1 each INH .USE WITH NICOTROL PRN PRN Reason: CRAVING Last Admin: 11/27/16 09:19 Dose: 1 each [place] Carbonate ([place] Carbonate Tab*) 300 mg PO BID [facility] Last Admin: 11/28/16 09:47 Dose: 300 mg Mirtazapine (Remeron Tab*) 15 mg PO BEDTIME LIBBY Last Admin: 11/27/16 20:51 Dose: 15 mg Nicotine (Nicotine Inhaler*) 10 mg INH Q2H PRN PRN Reason: CRAVING Last Admin: 11/27/16 09:18 Dose: 10 mg Risperidone (Risperdal*) 2 mg PO BEDTIME LIBBY Last Admin: 11/27/16 20:50 Dose: 2 mg - Discharge Plan Discharge Plan: Outpatient Follow Up Outpatient Program: [facility]
--- NOTE | 2016-11-28 16:21 | PN ---
MHU: Group Therapy Note - Service Type Service Type: [id number] Group Psychotherapy - Service Type [id number] Group Psychotherapy. Medication education group. Discussed categories of psychopharmacology, side effects, risks/benefits. Reviewed common misconceptions and facts. Patient was mildly disorganized and asked that information be repeated at times. She was pleasant to peers and interactive in group.
[2016-11-28] MEDS: risperiDONE TAB* 2 MG PO SCH (22:08)
[2016-11-28] MEDS: Mirtazapine TAB* 15 MG PO SCH (22:08)
[2016-11-28] MEDS: Benztropine TAB* 1 MG PO SCH (22:08)
[2016-11-29 09:03] VITALS: BP 93/64
[2016-11-29] MEDS: Lithium Carbonate TAB* 300 MG PO SCH (10:10)
[2016-11-29] MEDS: Nicotine Inhaler* 10 MG AMP INH PRN (10:12)
[2016-11-29] MEDS: Mouth Piece, Nicotine* 1 EACH CARTRIDGE INH PRN (10:12)
--- NOTE | 2016-11-29 15:20 | DS ---
Subjective - Subjective Service Types: 94798 Hosp DC Day Mgmt simple under 30 min Subjective: Patient in group on my approach. She is calm, cooperative and engages the interview. Patient reports continued med compliance and denies med s/e's on increased dose of Sedillo started last night. Patient denies reports no episodes of "lymphocyting" since admission. She reports sleep and appetite continue to be good. She reports no SI/HI and no AH/VH. Patient informed she can call hotline, call 911, or present to her local ED if manic symptoms recur or if SI occurs. Patient is amenable. Patient reports her father will present at discharge to transport her back home. Patient acknowledges understanding of her community and family supports. Objective - Appearance Appearance: Well Developed/Nourished Dysmorphic Features: No Hygiene: Normal Grooming: Well Kept - Behavior Psychomotor Activities: Normal Exhibits Abnormal Movement: No - Attitude and Relatedness Attitude and Relatedness: Cooperative Eye Contact: Fair - Speech Quality: Unpressured Latencies: Normal Quantity: Appropriate - Mood Patient's Decription of Mood: "Fine" - Affect Observed Affect: Fair Affect Consistent with: Euthymia - Thought Process Patient's Thought Process: Coherent Thought Content: No Passive Wish, No Suicidal Planning, No Homicidal Ideation, No Paranoid Ideation - Sensorium Experiencing Hallucinations: No, Sensorium is Clear Type of Hallucinations: Visual: No, Auditory: No, Command: No - Level of Consciousness Level of Consciousness: Alert Orientation: Yes Intact, Yes Orientated to Time, Yes Orientated to Place, Yes Orientated to Person - Impulse Control Impulse Control: Intact - Insight and Judgement Insight and Judgement: Fair - Group Participation Particating in Group Activities: Yes - Medication Management Medication Management Adherence: Yes Treatment Course & Assessment Clinical Course & Impression: HOSPITAL COURSE: Patient is a 36yo female with PPHx significant for Bipolar 1 d/o who self presents to [facility] ED reporting worsening insomnia, agitation, and "lymphocyting" over the last 3 days. Patient reports she made that word up, but to her lymphocyting is an episodic inability to sit still, she has to walk around, she has to hold her legs to keep them from bouncing. Patient gives this provider verbal permission to call parents. Collateral information gained from mother#[phone]. Mom reports patient has been more irritable and angry. Patient has been demanding toward family and is verbally aggressive when someone upsets her. Mom reports patient has not slept well for a week. She also reports patient's "nerves" have been bad and she cant stop pacing. On interview, patient is activated in manner, rapid in speech but incorruptible, reports increased anxiety and insomnia.Patient displays moderate psychomotor activation. Patient is linear in TP and appropriate in TC. She reports no use of alcohol or illicit substances since being with her 3yo son. She reports being a [facility] patient. She also is an [facility] patient and a patient of [facility]. Patient reports she is compliant with current psychotropic med regimen. Patient denies hx of physical, emotional, or sexual abuse in her life. Patient denies hx of suicide attempt and denies hx of SIB. Patient denies symptoms of psychosis nor were any elicited on interview. Patient denied SI/HI and AH/VH. On admission, patient was continued on home Cogentin 1mg po daily for EPS. Patient gave informed consent to start Mirtazepine 15mg po qhs for Akathesia and Insomnia. Zoloft was discontinued. Haldol was discontinued as it likely is the cause of Akathesia patient is experiencing and referring to as "lymphocyting". Patient gave informed consent to start Sedillo 300mg po BID for mood stabilization. Patient slowly improved on Sedillo. Patient's activated behavior, intrusiveness, racing thought, irritability, and Akathesia symptoms improved on Sedillo and Mirtazepine. Patient seen by [facility] and SW. Patient was discharged from [facility] 2 weeks prior to this admission, but they had a recommendation to start an JONES antipsychotic as patient noted to become periodically bizarre in thought and behavior during their time with patient. Patient amenable to initiation of Risperdal 2mg po qhs for her episodic psychosis. She declined conversion to an JONES reporting idea that she was allergic to needles. Patient had 2 episodes of bruising after blood draws and assumed the needle not the trauma as the cause of the bruising. She was educated, but continued decline recommendation of an JONES. On 11/28/16, Sedillo level drawn was 0.22. Patient was amenable to dose increase of Sedillo from 300mg to 450mg po BID for mood stabilization. Patient will need another level drawn at post hospital discharge appt at [facility]. On day of discharge, patient is A&Ox3, TP is linear and TC is future oriented. Patient reports desire to seek disability benefits as she accepts her MH condition has kept her unable to maintain a job. She is looking forward to being with her 3yo son. Patient reports her son is her motivation and her primary protective factor from SI. Patient is psychiatrically stable. Patient acknowledges understanding of her discharge plan and is amenable. Patient will be discharged to home with her father who has come to the unit to transport her home. PERTINENT LABS: Laboratory Tests 11/21/16 11/21/16 11/21/16 11:06 11:06 11:25 WBC 11.2 H RBC 5.35 Hgb 13.7 Hct 43 MCV 80 MCH 26 L MCHC 32 RDW 14 Plt Count 224 MPV 9 Neut % (Auto) 79.8 Lymph % (Auto) 15.3 L Wise % (Auto) 3.5 Eos % (Auto) 0.4 Baso % (Auto) 1.0 Absolute Neuts (auto) 8.9 H Absolute Lymphs (auto) 1.7 Absolute Monos (auto) 0.4 Absolute Eos (auto) 0 Absolute Basos (auto) 0.1 Absolute Nucleated RBC 0 Nucleated RBC % 0 Sodium 136 Potassium 3.3 L Chloride 106 Carbon Dioxide 19 L Anion Gap 11 BUN 9 Creatinine 0.63 Est GFR ( Amer) 136.7 Est GFR (Non-Af Amer) 106.3 BUN/Creatinine Ratio 14.3 Glucose 114 H Calcium 9.6 Total Bilirubin 0.30 AST 14 ALT 21 Alkaline Phosphatase 61 Total Protein 7.5 Albumin 4.2 Globulin 3.3 Albumin/Globulin Ratio 1.3 Triglycerides 116 Cholesterol 171 LDL Cholesterol 104 HDL Cholesterol 43.4 TSH 1.26 Urine Color Yellow Urine Appearance Clear Urine pH 5.0 Ur Specific [place] 1.020 Urine Protein Negative Urine Ketones 1+ H Urine Blood Negative Urine Nitrate Negative Urine Bilirubin Negative Urine Urobilinogen Negative Ur Leukocyte Esterase Trace H Urine WBC (Auto) 1+(6-10/hpf) H Urine RBC (Auto) Absent Ur Squamous Epith Cells Present H Urine Bacteria Absent Urine Glucose Negative Urine Ascorbic Acid * H Salicylates < 2.50 Urine Opiates Screen Acetaminophen < 15 Ur Barbiturates Screen Ur Phencyclidine Scrn Ur Amphetamines Screen U Benzodiazepines Scrn Sedillo Urine Cocaine Screen U Cannabinoids Screen Serum Alcohol < 10 11/21/16 11/27/16 11:25 08:25 WBC RBC Hgb Hct MCV MCH MCHC RDW Plt Count MPV Neut % (Auto) Lymph % (Auto) Wise % (Auto) Eos % (Auto) Baso % (Auto) Absolute Neuts (auto) Absolute Lymphs (auto) Absolute Monos (auto) Absolute Eos (auto) Absolute Basos (auto) Absolute Nucleated RBC Nucleated RBC % Sodium 137 Potassium 4.1 Chloride 107 Carbon Dioxide 22 Anion Gap 8 BUN 14 Creatinine 0.64 Est GFR ( Amer) 134.3 Est GFR (Non-Af Amer) 104.4 BUN/Creatinine Ratio 21.9 H Glucose 117 H Calcium 9.2 Total Bilirubin 0.20 AST 75 H ALT 112 H Alkaline Phosphatase 62 Total Protein 7.0 Albumin 4.1 Globulin 2.9 Albumin/Globulin Ratio 1.4 Triglycerides Cholesterol LDL Cholesterol HDL Cholesterol TSH Urine Color Urine Appearance Urine pH Ur Specific [place] Urine Protein Urine Ketones Urine Blood Urine Nitrate Urine Bilirubin Urine Urobilinogen Ur Leukocyte Esterase Urine WBC (Auto) Urine RBC (Auto) Ur Squamous Epith Cells Urine Bacteria Urine Glucose Urine Ascorbic Acid Salicylates Urine Opiates Screen None detected Acetaminophen Ur Barbiturates Screen None detected Ur Phencyclidine Scrn None detected Ur Amphetamines Screen None detected U Benzodiazepines Scrn None detected Sedillo 0.22 L Urine Cocaine Screen None detected U Cannabinoids Screen None detected Serum Alcohol Consultants: none Discharge Meds: Home Medications Medication Instructions Recorded Confirmed Type Benztropine TAB* [Cogentin TAB*] 1 mg PO DAILY #30 11/29/16 Rx Sedillo Carbonate TAB* 450 mg PO BID #60 tab 11/29/16 Rx Mirtazapine TAB* [Remeron TAB*] 15 mg PO BEDTIME #30 tab 11/29/16 Rx risperiDONE TAB* [Risperdal*] 2 mg PO BEDTIME #30 tab 11/29/16 Rx Follow-Up: Appts for within the next 2 weeks scheduled by [facility] for [facility] provider. Clear for Discharge: Adequate Clinical Respons, Acceptable Safety Profile Inpatient DSM-IV Dx: 1. Bipolar 1 d/o, MRE manic with PFs. 2. Akathisia, resolved Discharge Planning - Discharge Planning Discharge Plan: Outpatient Follow Up Outpatient [facility] Recommendations for Continuing Care: Medication Management, Therapeutic Drug Levels - Need repeat Sedillo level Medications: Current Medications Acetaminophen (Tylenol Tab*) 650 mg PO Q4H PRN PRN Reason: for pain; or Temp >101 F Al Hydrox/Mg Hydrox/Simethicone (Maalox Plus*) 30 ml PO Q4H PRN PRN Reason: INDIGESTION Benztropine Mesylate (Cogentin Tab*) 1 mg PO BEDTIME [facility] Last Admin: 11/28/16 22:08 Dose: 1 mg Device (Nicotine Mouth Piece*) 1 each INH .USE WITH NICOTROL PRN PRN Reason: CRAVING Last Admin: 11/29/16 10:12 Dose: 1 each Sedillo Carbonate (Sedillo Carbonate Tab*) 450 mg PO BID [facility] Last Admin: 11/29/16 10:10 Dose: 450 mg Mirtazapine (Remeron Tab*) 15 mg PO BEDTIME [facility] Last Admin: 11/28/16 22:08 Dose: 15 mg Nicotine (Nicotine Inhaler*) 10 mg INH Q2H PRN PRN Reason: CRAVING Last Admin: 11/29/16 10:12 Dose: 10 mg Risperidone (Risperdal*) 2 mg PO BEDTIME [facility] Last Admin: 11/28/16 22:08 Dose: 2 mg Discharge Planning: Prescriptions provided for discharge [x] Yes [] No Follow up care details as per social work arrangements. Patient response to discharge plan: [] eager for discharge [x] agreeable with discharge plan [] ambivalent about discharge [] disagrees with discharge today
== END 2016-11-29 15:30 | disposition home or self-care (01) | DRG 753 ==
LOC: ED 10:15 → BSU 16:37
PROVIDERS: ADMIT Psychiatry & Neurology Psychiatry; ATTEND Psychiatry & Neurology Psychiatry
DX: F31.2 Bipolar disorder, current episode manic severe with psychotic features (principal); G25.71 Drug induced akathisia
CPT/HCPCS: 36415; 80053; 80061; 80178; 80307; 80320; 80329; 81003; 81015; 84443; 85025; 87086; 90853; 99222; 99231; 99238; A9270-GY; G0480; J1200; J1630; J2060

== ENCOUNTER 2020-07-01 11:21 | Inpatient (IN) ==
[2020-07-01 12:28] LABS: Urine Appearance Clear; Urine Bacteria 1+ (Absent); Urine Bilirubin Negative (Negative); Urine Blood Negative (Negative); Urine Color Straw; Urine Glucose Negative (Negative); Urine Ketones Negative (Negative); Urine Nitrite Negative (Negative); Urine Protein Negative (Negative); Urine Red Blood Cell Trace(0-2/hpf) (Absent); Urine Specific Gravity 1.004 (1.010-1.030); Urine Squamous Epithelial Cell Present (Absent); Urine Urobilinogen Negative (Negative); Urine White Blood Cell Trace(0-5/hpf) (Absent)
[2020-07-01 13:03] LABS: Urine Benzodiazepine Screen None Detected (None Detect); Urine Cannabinoids Screen None Detected (None Detect); Urine Opiates Screen None Detected (None Detect)
[2020-07-01 13:17] LABS: ABS Basophils 0.1 10^3/ul (0-0.2); ABS Lymphocytes 2.1 10^3/ul (1.0-4.8); ABS Monocytes 0.7 10^3/ul (0-0.8); ABS Neutrophils 9.8 10^3/ul (1.5-7.7); Eosinophil % 0.2 %; Hematocrit 44 % (35-47); Hemoglobin 14.6 g/dL (12.0-16.0); Lymphocyte % 16.6 %; Mean Corpuscular HGB Conc 33 g/dL (31-36); Mean Corpuscular Hemoglobin 27 pg (27-31); Mean Corpuscular Volume 82 fL (80-97); Mean Platelet Volume 8.3 fL (7.4-10.4); Platelet Count 239 10^3/uL (150-450); Red Blood Count 5.38 10^6 /uL (3.70-4.87); Red Cell Distribution Width 13 % (10-15); White Blood Count 12.7 10^3/uL (3.5-10.8)
[2020-07-01 13:35] LABS: ALT 15 U/L (7-52); AST 10 U/L (13-39); Albumin 4.8 g/dL (3.2-5.2); Albumin/Globulin Ratio 1.6 (1-3); Alkaline Phosphatase 63 U/L (34-104); Anion Gap 9 mmol/L (2-11); BUN/Creatinine Ratio 11.5 (8-20); Blood Urea Nitrogen 6 mg/dL (6-24); CO2 Carbon Dioxide 23 mmol/L (22-32); Calcium 9.9 mg/dL (8.6-10.3); Chloride 106 mmol/L (101-111); EGFR Non-African American 130.6 (>60); Glucose 98 mg/dL (70-100); Sodium 138 mmol/L (135-145); Total Protein 7.8 g/dL (6.4-8.9)
[2020-07-01 14:05] LABS: Alcohol, S < 10 mg/dL (<10); Lithium < 0.10 mmol/L (0.6-1.2); Salicylate < 2.50 mg/dL (<30)
[2020-07-01 14:08] LABS: Acetaminophen < 10 mcg/mL
[2020-07-01 14:19] LABS: TSH Ultra Thyroid Stim Horm 0.88 mcIU/mL (0.34-5.60)
[2020-07-01] MEDS ORDERED: Al Hydrox/Mg Hydrox/Simet LIQ 30 ML UDC PO PRN (16:39)
[2020-07-02] MEDS ORDERED: Nicotine GUM 2MG FRUIT FLAVOR PO ONE (08:14)
[2020-07-02] MEDS: Vitamin THERAPEUTIC TAB PO SCH (09:43)
[2020-07-02] MEDS ORDERED: Nicotine GUM 2MG FRUIT FLAVOR PO PRN (12:22)
[2020-07-03] MEDS: Vitamin THERAPEUTIC TAB PO SCH (09:35)
[2020-07-04] MEDS: Vitamin THERAPEUTIC TAB PO SCH (11:55)
[2020-07-05] MEDS: Vitamin THERAPEUTIC TAB PO SCH (08:44)
[2020-07-06] MEDS: Vitamin THERAPEUTIC TAB PO SCH (10:07)
[2020-07-07] MEDS: Vitamin THERAPEUTIC TAB PO SCH (12:35)
[2020-07-08] MEDS: Vitamin THERAPEUTIC TAB PO SCH (13:49)
[2020-07-09] MEDS: Vitamin THERAPEUTIC TAB PO SCH (07:55)
[2020-07-10] MEDS: Vitamin THERAPEUTIC TAB PO SCH (07:58)
[2020-07-11] MEDS: Vitamin THERAPEUTIC TAB PO SCH (10:59)
[2020-07-11] MEDS ORDERED: risperiDONE-M 1 mg Oradis TAB ONE (14:47)
[2020-07-12] MEDS: Vitamin THERAPEUTIC TAB PO SCH (09:34)
[2020-07-13] MEDS: Vitamin THERAPEUTIC TAB PO SCH (09:41)
[2020-07-14] MEDS: Vitamin THERAPEUTIC TAB PO SCH (09:57)
[2020-07-15] MEDS: Vitamin THERAPEUTIC TAB PO SCH (08:47)
[2020-07-16] MEDS: Vitamin THERAPEUTIC TAB PO SCH (09:09)
[2020-07-17 08:26] VITALS: BP 106/65
[2020-07-17] MEDS: Vitamin THERAPEUTIC TAB PO SCH (09:23)
== END 2020-07-17 11:54 | disposition home or self-care (01) | DRG 753 ==
LOC: ED 11:21 → BSU 16:11
PROVIDERS: ADMIT Psychiatry & Neurology Psychiatry; ATTEND Psychiatry & Neurology Psychiatry